=== PATIENT | female | born 1965 | race African-American/Black ===

== ENCOUNTER 2024-06-18 01:54 | Emergency (ER) | payer MEDICAID, OTHER ==
[~2024-06-18] VITALS: Ht 167.6 cm; Wt 76.0 kg
[2024-06-18 02:14] VITALS: TEMP 98.9; O2SAT 98
[2024-06-18] MEDS ORDERED: ALBU2.5V13 NEB (03:15)
[2024-06-18] MEDS ORDERED: ALBU90AE INH (03:15)
[2024-06-18] MEDS ORDERED: BENZ100C86 MT (03:15)
[2024-06-18 04:03] VITALS: BP 121/82; PULSE 85; RESP 18; O2SAT 97
== END 2024-06-18 04:05 | disposition home or self-care (01) ==
LOC: ER 01:54
DX: B34.9 Viral infection, unspecified (principal); J45.909 Unspecified asthma, uncomplicated; Z98.890 Other specified postprocedural states
CPT/HCPCS: 71045; 99283

== ENCOUNTER 2024-09-07 18:23 | Emergency (ER) | payer MEDICAID, OTHER ==
[~2024-09-07] VITALS: Ht 168.9 cm; Wt 76.2 kg
[~2024-09-07 18:23] MED LIST: ALBU2.5V13 NEB; ALBU90AE INH; BENZ100C86 MT
[2024-09-07] MEDS: IPRATROPIUM BROMIDE (0.02%) 0.5MG/2.5ML NEB HHN STA (20:34)
[2024-09-07] MEDS: ALBUTEROL (0.083%) 2.5MG/3ML NEB HHN STA (20:35)
[2024-09-07 20:37] VITALS: PULSE 98; RESP 20; O2SAT 99
[2024-09-07 20:41] LABS: BASOPHILS % 0.8 % (0.0-2.0); EOSINOPHILS % 3.8 % (0.0-5.0); HEMATOCRIT. 39.4 % (36.0-48.0); HEMOGLOBIN. 12.9 g/dL (12.0-16.0); LYMPHOCYTES % 24.4 % (20.0-50.0); MEAN CORPUSCULAR HEMOGLOBIN 30.4 pg (28.0-32.0); MEAN CORPUSCULAR HGB CONC 32.7 g/dL (31.0-37.0); MONOCYTES % 8.1 % (2.0-8.0); NEUTROPHILS % 62.9 % (40.0-76.0); PLATELET 167 x1000/uL (130-400); RED BLOOD CELL COUNT 4.24 mill/uL (4.2-5.4); RED CELL DISTRIBUTION WIDTH 13.9 % (11.6-14.6); WHITE BLOOD COUNT 7.5 x1000/uL (4.5-11.0)
[2024-09-07 20:48] LABS: CHLORIDE 103 mEq/L (98-107); POTASSIUM 3.2 mEq/L (3.5-5.1); SODIUM 141 mEq/L (136-145)
[2024-09-07] MEDS: METHYLPREDNISOLONE SOD SUCC 125MG/2ML (ACT-O-VIAL) IV STA (20:48)
[2024-09-07 20:49] LABS: CALCIUM 9.6 mg/dL (8.7-10.4); CARBON DIOXIDE 26 mEq/L (21-32)
[2024-09-07 20:50] LABS: HCG SCREEN NEGATIVE
[2024-09-07 20:54] LABS: CREATININE 0.7 mg/dL (0.6-1.0); GLUCOSE 101 mg/dL (70-105); UREA NITROGEN BLOOD 9 mg/dL (9-23)
[2024-09-07] MEDS: MAGNESIUM 2 G PREMIX 50 ML IV ONE (20:55)
[2024-09-07] MEDS: KETOROLAC 15MG/ML VIAL IV ONE (21:54)
[2024-09-08 00:15] VITALS: BP 167/108; PULSE 77; RESP 20; TEMP 36.7; O2SAT 97
== END 2024-09-08 01:36 | disposition left against medical advice (07) ==
LOC: ER 18:23
DX: J45.901 Unspecified asthma with (acute) exacerbation (principal); I10 Essential (primary) hypertension
CPT/HCPCS: 80048; 84703; 85025; 36415; 71045; 94664; 93005; 98960; 96365; 96375; 99285; J1885; J3475; J2919; Z7610 ×5; 94070; 94640; 96366